=== PATIENT | male | born 1980 | race American Indian/Alaskan Native ===

== ENCOUNTER 2017-07-15 22:40 | Emergency (ER) | payer OTHER ==
[2017-07-16 03:24] VITALS: BP 148/95
--- NOTE | 2017-07-16 03:44 | Emergency Department Report ---
ED Back Pain/Injury HPI - General Chief Complaint: Back Pain/Injury Stated Complaint: BACK PAIN Time Seen by Provider: 07/16/17 03:43 Source: patient, family Mode of arrival: Ambulatory Limitations: No Limitations - History of Present Illness Initial Comments: Patient reports that he has lower back pain 1 week and he doesn't remember injured his back and he does not have a history of back pain. Or any back injury. Patient reports that pain is 8 out of 10 and it is throbbing in and is difficult for him to walk because his pain is worse with walking and better rested. He is reporting pain to his lower back to his mid line area. He has history of diabetes and history of skin graft. Denies any fever or chills. Denies any nausea or vomiting. Denies any chest pain or shortness of breath. Denies any abdominal pain. Denies any urinary burning, frequency or urgency. Denies any loss of bowel or bladder function. [id number] pain medication taken with no relief. MD Complaint: back pain Onset/Timin -: week(s) Similar Symptoms Previously: No Place: home Radiation: none Severity: severe Severity scale (0 -10): 8 Quality: other (throbbing) Consistency: constant Improves With: immobilization Worsens With: movement, walking Context: unknown Associated Symptoms: difficulty walking. denies: confusion, weakness, chest pain, numbness, cough, difficulty urinating, diaphoresis, incontinence, fever/ chills, constipation, headaches, abdominal pain, loss of appetite, malaise, nausea/vomiting, rash, seizure, shortness of breath, syncope Treatments Prior to Arrival: NSAIDS - Related Data Previous Rx's Medication Instructions Recorded Last Taken Type Methocarbamol [Robaxin TAB] 750 mg PO BID PRN #12 tab 07/16/17 Unknown Rx traMADol [Ultram] 50 mg PO Q6HR PRN #20 tablet 07/16/17 Unknown Rx Allergies Allergy/AdvReac Type Severity Reaction Status Date / Time No Known Allergies Allergy Unverified 07/15/17 22:48 ED Review of Systems ROS: Stated complaint: BACK PAIN Other details as noted in HPI Comment: All other systems reviewed and negative Constitutional: no symptoms reported Respiratory: no symptoms reported Cardiovascular: denies: chest pain, palpitations, dyspnea on exertion, orthopnea , edema, syncope, paroxysmal nocturnal dyspnea Gastrointestinal: denies: abdominal pain, nausea, vomiting, diarrhea, constipation, hematemesis, melena, hematochezia Genitourinary: denies: dysuria, frequency, hematuria, discharge, testicular pain , testicular mass Musculoskeletal: back pain. denies: joint swelling, arthralgia, myalgia Skin: denies: rash Neurological: abnormal gait (lower back pain). denies: headache, weakness, numbness, paresthesias, confusion, vertigo ED Past Medical Hx - Past Medical History Previous Medical History?: Yes Hx Diabetes: Yes (on medication) - Surgical History Past Surgical History?: Yes Additional Surgical History: skin graft - Family History Family history: diabetes, hypertension - Social History Smoking Status: Former Smoker Substance Use Type: Alcohol - Medications Home Medications: Home Medications Medication Instructions Recorded Confirmed Last Taken Type Methocarbamol [Robaxin TAB] 750 mg PO BID PRN #12 tab 07/16/17 Unknown Rx traMADol [Ultram] 50 mg PO Q6HR PRN #20 tablet 07/16/17 Unknown Rx ED Physical Exam - General Limitations: No Limitations General appearance: alert, in no apparent distress - Head Head exam: Present: atraumatic, normocephalic, normal inspection, other (exam normal) - Eye Eye exam: Present: normal appearance, PERRL, EOMI. Absent: nystagmus Pupils: Present: normal accommodation - ENT ENT exam: Present: normal exam, normal orophraynx, mucous membranes moist - Neck Neck exam: Present: normal inspection, other (no C-spine tenderness). Absent: tenderness, meningismus, full ROM, lymphadenopathy, thyromegaly - Respiratory Respiratory exam: Present: normal lung sounds bilaterally. Absent: respiratory distress, chest wall tenderness - Cardiovascular Cardiovascular Exam: Present: regular rate, normal rhythm. Absent: normal heart sounds - GI/Abdominal GI/Abdominal exam: Present: soft, normal bowel sounds. Absent: distended, tenderness, guarding, rebound, rigid, mass, bruit, pulsatile mass, hernia - Extremities Exam Extremities exam: Present: normal inspection, full ROM, normal capillary refill , other (no clubbing, cyanosis or edema. +2 pulses to all extremities and no neurovascular compromise.). Absent: tenderness, pedal edema, joint swelling, calf tenderness - Back Exam Back exam: Present: normal inspection, full ROM, tenderness (midline vertebral, lumbar), vertebral tenderness (lumbar spine), other (patient able to ambulate but slowly and he is holding his back while he is ambulating.). Absent: CVA tenderness (R), CVA tenderness (L), muscle spasm, paraspinal tenderness, rash noted - Expanded Back Exam Expanded Back exam: Present: other (patient unable to lean forward to touch his toes he can do it midway but reports that it hurts in his lower back. Decreased range of motion to lower back due to pain). Absent: saddle anesthesia Back exam: Positive Straight Leg Raise: Left, Right - Neurological Exam Neurological exam: Present: alert, oriented X3, abnormal gait (patient with abnormal gait due to lower back pain and said it difficult for him to walk.), reflexes normal. Absent: motor sensory deficit - Expanded Neurological Exam Expanded Neurological exam: Absent: innattentive, memory loss-remote event, memory loss- recent event, ataxia, receptive aphasia, expressive aphasia, total aphasia, tremor, protecting the airway Patient oriented to: Present: person, place, time Speech: Present: fluid speech Cranial nerves: EOM's Intact: Normal, Gag Reflex: Normal, Tongue Deviation: Normal, Nystagmus: Normal, Facial Sensation: Normal Ataxia: Absent: yes Cerebellar function: Romberg: Normal Upper motor neuron: Pronator Drift: Normal, Sensory Extinction: Normal Sensory exam: Upper Extremity Light Touch: Normal, Upper Extremity Pin Prick: Normal, Upper Extremity Temperature: Normal, UE 2 Point Discrimination: Normal, Lower Extremity Light Touch: Normal, Lower Extremity Pin Prick: Normal, Lower Extremity Temperature: Normal, LE 2 Point Discrimination: Normal Motor strength exam: RUE: 5, LUE: 5, RLE: 5, LLE: 5 DTR: bicep (R): 2+, bicep (L): 2+, tricep (R): 2+, tricep (L): 2+, knee (R): 2+ , knee (L): 2+, ankle (R): 2+, ankle (L): 2+ Best Eye Response (Saravanan): (4) open spontaneously Best Motor Response (Saravanan): (6) obeys commands Best Verbal Response ([place]): (5) oriented Saravanan Total: 15 - Psychiatric Psychiatric exam: Present: normal affect, normal mood - Skin Skin exam: Present: warm, dry, intact, normal color. Absent: rash ED Course Vital Signs 07/15/17 07/16/17 22:48 03:23 Temperature 98.3 F Pulse Rate 74 74 Respiratory 18 18 Rate Blood Pressure 140/95 Blood Pressure 148/95 [Right] O2 Sat by Pulse 96 97 Oximetry - Reevaluation(s) Reevaluation #1: 07/16/17 07:05 Patient to receive Percocet 5/325 2 tablets and Flexeril 10 mg by mouth prior to discharge. ED Medical Decision Making - Lab Data Lab Results 07/16/17 Range/Units Unknown Urine Color Yellow (Yellow) Urine Turbidity Clear (Clear) Urine pH 5.0 (5.0-7.0) Ur Specific [place] 1.025 (1.003-1.030) Urine Protein <15 mg/dl (Negative) mg/dL Urine Glucose (UA) Neg (Negative) mg/dL Urine Ketones Neg (Negative) mg/dL Urine Blood Neg (Negative) Urine Nitrite Neg (Negative) Urine Bilirubin Neg (Negative) Urine Urobilinogen < 2.0 (<2.0) mg/dL Ur Leukocyte Esterase Neg (Negative) Urine WBC (Auto) 1.0 (0.0-6.0) /HPF Urine RBC (Auto) 3.0 (0.0-6.0) /HPF U Epithel Cells (Auto) < 1.0 (0-13.0) /HPF Urine Mucus 2+ /HPF POC blood sugar is at 86 - Radiology Data Radiology results: report reviewed CT scan of lumbar spine reveals patient with small central disc protrusion with associated endplates spondylolisthesis at L5 and S1. No significant spinal canal or neural for minimal stenosis is detected within the limits of this exam. Otherwise unremarkable CT appearance of the lumbar spine. Consider MRI follow-up and this will be done with outpatient referral to orthopedic doctor - Medical Decision Making ED course: She is here complaining about pain over one week to his lower back located midline that is getting worse even with taking Motrin. He said that he does not have any history of back pain and does not remember injuring his back. Physical findings for limited range of motion to lower back due to pain. Tenderness to palpate to lumbar spine midline. Patient with abnormal gait due to pain in the lower back he said he cannot walk straight. He does not have any radiculopathy. Urinalysis reveals normal values. CT scan of the lumbar spine reveals patient with small central disc protrusion with associated endplate spondylolisthesis at L5 to S1 and recommended follow-up MRI. Patient will be referred to Dr. Navarro for evaluation and continued treatment. Patient given Flexeril 10 mg by mouth and Percocet 5/325 2 tablets by mouth in the emergency room which relieved his back pain to 5 out of 10 and is able to ambulate without any limp. I discussed diagnosis, urine results and CT scan result patient and he voiced understanding and need to follow up with orthopedic doctor for further evaluation. Patient discharged home with prescription for Ultram and Robaxin. Critical care attestation.: If time is entered above; I have spent that time in minutes in the direct care of this critically ill patient, excluding procedure time. ED Disposition Clinical Impression: Lumbosacral spondylolysis, DDD (degenerative disc disease), lumbosacral, Protrusion of intervertebral disc of lumbosacral region Lower back pain Qualifiers: Chronicity: acute Back pain laterality: midline Sciatica presence: without sciatica Qualified Code(s): M54.5 - Low back pain Disposition: DC-01 TO HOME OR SELFCARE Is pt being admited?: No Does the pt Need Aspirin: No Condition: Stable Instructions: Acute Low Back Pain (ED), Degenerative Disc Disease (ED), Lumbar Disc Herniation (ED) Additional Instructions: Please follow up with orthopedic doctor as instructed. Do not drive or operate heavy machinery while taking an Ultram or Robaxin as this medication they cause drowsiness Please rest for a couple days and avoid doing strenuous activity. Prescriptions: Methocarbamol [Robaxin TAB] 750 mg PO BID PRN #12 tab PRN Reason: lower back pain and spasm traMADol [Ultram] 50 mg PO Q6HR PRN #20 tablet PRN Reason: Pain Referrals: SANTOSH FOUNTAIN MD [Staff Physician] - 07/18/17 [facility] [Outside] - 2-3 Days Forms: Work/School Release Form(ED), Accompanied Note
[2017-07-16 04:17] LABS: Bilirubin,Urine NEG (Negative); Blood,Urine NEG (Negative); Color,Urine Yellow (Yellow); Mucus,Urine 2+ /HPF; Protein,Urine <15 mg/dL mg/dL (Negative); Urobilinogen,Urine < 2.0 mg/dL (<2.0)
--- NOTE | 2017-07-16 05:27 | Cat Scan Report ---
FINAL REPORT EXAM: CT LUMBAR SPINE WO CON HISTORY: midline back pain, lower. no injury TECHNIQUE: CT images are acquired through the lumbar spine without contrast. Transaxial , coronal and sagittal reformations are provided. PRIORS: None. FINDINGS: Lumbar lordosis is intact. There is mild intervertebral disc space narrowing at L5-S1 with posterior endplate spondylosis and posterior peripheral calcification of a small posterior central protrusion. No significant spinal canal or neural foraminal stenosis. Vertebral body heights and intervertebral disc spaces are otherwise preserved. No listhesis, spondylolysis or other fracture. Paraspinal soft tissues and imaged portions of the abdomen and pelvis demonstrate an unremarkable noncontrast appearance. IMPRESSION: Small central disc protrusion with associated endplate spondylosis at L5-S1. No significant spinal canal or neural foraminal stenosis is detected within limits of this exam. Otherwise unremarkable CT appearance of the lumbar spine. Consider follow-up MRI as warranted.
[2017-07-16] MEDS ORDERED: FLEXERIL PO ONE (07:04)
[2017-07-16] MEDS ORDERED: PERCOCET 5/325 PO ONE (07:04)
== END 2017-07-16 07:35 | disposition home or self-care (01) ==
LOC: ED 22:40
DX: M43.07 Spondylolysis, lumbosacral region (principal); M51.27 Other intervertebral disc displacement, lumbosacral region; E11.9 Type 2 diabetes mellitus without complications; Z87.891 Personal history of nicotine dependence
CPT/HCPCS: 72131; 81001; 82962; 87086; 99284